=== PATIENT | female | born 1935 | race Caucasian/White ===

== ENCOUNTER 2022-02-18 11:40 | Emergency (ER) | payer MEDICARE ==
[2022-02-18] MEDS ORDERED: ZITHROMAX250 MG PO (14:46)
[2022-02-18] MEDS ORDERED: AMOX TR-K CLV1 EAC4 PO (14:46)
== END 2022-02-18 15:00 | disposition home or self-care (01) ==
LOC: ER1 11:40
DX: S22.32XA Fracture of one rib, left side, initial encounter for closed fracture (principal); I10 Essential (primary) hypertension; E11.9 Type 2 diabetes mellitus without complications; J18.9 Pneumonia, unspecified organism; W01.0XXA Fall on same level from slipping, tripping and stumbling without subsequent striking against object, initial encounter; Y92.009 Unspecified place in unspecified non-institutional (private) residence as the place of occurrence of the external cause
CPT/HCPCS: 71046; 73030; 73060; 73070; 73090; 73100; 99283